=== PATIENT | female | born 2000 | race Caucasian/White ===

== ENCOUNTER 2022-07-10 16:40 | Emergency (ER) | payer OTHER ==
[2022-07-10] MEDS ORDERED: FLOXIN 0.3% OTIC5 ML AD (17:01)
[2022-07-10] MEDS ORDERED: AMOX TR-K CLV1 EAC4 PO (17:03)
== END 2022-07-10 17:34 | disposition home or self-care (01) ==
LOC: ER1 16:40
DX: H60.92 Unspecified otitis externa, left ear (principal)
CPT/HCPCS: 96372; 99282; J0696; J1100